=== PATIENT | male | born 1950 | race Caucasian/White ===

== ENCOUNTER 2017-05-26 09:00 | Outpatient (CLI) | payer MEDICARE ==
[~2017-05-26] VITALS: Ht 177.8 cm; Wt 67.1 kg
== END 2017-05-26 10:52 ==
LOC: PREOP 09:00
PROVIDERS: ATTEND Internal Medicine
DX: Z01.818 Encounter for other preprocedural examination; Z12.11 Encounter for screening for malignant neoplasm of colon

== ENCOUNTER 2017-05-27 07:33 | Day surgery (SDC) | payer MEDICARE ==
[~2017-05-27] VITALS: Ht 177.8 cm; Wt 67.1 kg
[2017-05-27] MEDS ORDERED: 1/2 NS IV SOLUTION 1,000 ML IV STA (07:41)
[2017-05-27] MEDS ORDERED: LIDOCAINE JELLY 2% (XYLOCAINE) 5 ML TUBE MM PRN (07:45)
--- NOTE | 2017-05-27 07:54 | Pre-Op Note & Conscious Sedat ---
Pre-Operative Progress Note H&P Reviewed The H&P was reviewed, patient examined and no changes noted. Date H&P Reviewed: May 27, 2017 Time H&P Reviewed: 07:54 Conscious Sedation Pre-Proced ASA Class: 1 Airway Mallampati Classification: (table mountain appropriate class) I. II. III, IV Lungs Heart ASA score ASA 1: a normal healthy patient ASA 2: a patient with a mild systemic disease (mid diabetes, controlled hypertension, obesity ASA 3: a patient with a severe systemic disease that limits activity (angina , COPD, prior Myocardial infarction) ASA 4: a patient with an incapacitating disease that is a constant threat to life (CHF, renal failure) ASA 5: a moribund patient not expected to survive 24 hrs. (ruptured aneurysm) ASA 6: a declared brain patient whose organs are being harvested. For emergent operations, add the letter E after the classification Grade 1 Sedation Plan: Analgesia, Amnesia, Plan communicated to team members, Discussed options with patient/fam, Discussed risks with patient/fam Note The patient is an appropriate candidate to undergo the planned procedure, sedation, and anesthesia. The patient immediately re-assessed prior to indication. RAFAEL SAVAGE MD May 27, 2017 07:54
[2017-05-27 07:59] VITALS: BP 164/78
[2017-05-27] MEDS ORDERED: MIDAZOLAM 2 MG/2 ML (VERSED) VIAL ONE ×2 (08:24)
[2017-05-27] MEDS ORDERED: fentaNYL INJECTION 100 MCG/2 ML AMP ONE (08:24)
[2017-05-27] MEDS ORDERED: LIDOCAINE JELLY 2% (XYLOCAINE) 5 ML TUBE ONE (08:24)
[2017-05-27] MEDS: fentaNYL INJECTION 100 MCG/2 ML AMP IVP PRN ×2 (08:45→09:03)
[2017-05-27] MEDS: MIDAZOLAM 2 MG/2 ML (VERSED) VIAL IVP PRN ×2 (08:53→09:03)
[2017-05-27 09:40] VITALS: BP 144/72
[2017-05-27 10:10] VITALS: BP 137/78
[2017-05-27 10:25] VITALS: BP 137/78
--- NOTE | 2017-05-28 15:51 | OPERATIVE REPORT ---
DATE OF SERVICE: COLONOSCOPY SUMMARY INDICATION FOR THE PROCEDURE: Screening colonoscopy. The patient was placed in the left lateral decubitus position. Prior to undergoing colonoscopy digital rectal evaluation was performed. No abnormalities were noted on digital inspection of anal canal or distal rectal vault. The prostate was normal in size, anodular and nontender. The perianal reflexes intact and anal sphincter tone was normal. The colonoscope was then inserted into the rectum and under direct visualization advanced to the cecum. The cecum was identified by identification of the valve and cecal strap. Photographic documentation was obtained. Careful inspection was made as the colonoscope was withdrawn. FINDINGS: 1. There was no evidence for internal or external hemorrhoids and the rectum was unremarkable. Several small diverticula were noted in the sigmoid colon without evidence for diverticulitis. 2. Diminutive 4 mm sessile polyp was noted in the proximal sigmoid colon that was biopsied and ablated with no subsequent blood loss. Present in the proximal descending colon was similar 4 mm diminutive polyp. It too was biopsied and ablated and submitted for histopathology with no blood loss. No other descending colonic abnormalities were noted. The splenic flexure, transverse colon, hepatic flexure, ascending colon and cecum were unremarkable. ASSESSMENT: Two diminutive polyps were removed via biopsy with hot forceps, one noted in the proximal sigmoid colon, the other in the proximal descending colon. Mild diverticular disease confined to the sigmoid colon was present without evidence for diverticulitis. No other abnormalities were noted on today's procedure. Prostate was unremarkable to digital inspection and normal in size. Job ID: [id number] DocumentID: [id number] Dictated Date: 05/28/2017 15:25:11 Joint Machine Operator Date: 05/28/2017 15:50:47 Dictated By: RAFAEL SAVAGE MD
== END 2017-05-27 09:25 | disposition home or self-care (01) ==
LOC: ENDO 07:33
PROVIDERS: ATTEND Internal Medicine
DX: Z12.11 Encounter for screening for malignant neoplasm of colon (principal); D12.4 Benign neoplasm of descending colon; K63.5 Polyp of colon; K57.30 Diverticulosis of large intestine without perforation or abscess without bleeding; F17.210 Nicotine dependence, cigarettes, uncomplicated
CPT/HCPCS: 88305